=== PATIENT | female | born 1965 | race Caucasian/White ===

== ENCOUNTER → 2017-03-30 | Outpatient (CLI) | payer OTHER | LOC: MC.RAD 13:57 | DX: N63 Unspecified lump in breast (principal); N64.9 Disorder of breast, unspecified; Z80.3 Family history of malignant neoplasm of breast ==

== ENCOUNTER 2017-05-19 15:23 | Emergency (ER) | payer OTHER ==
[~2017-05-19] VITALS: Ht 154.9 cm; Wt 70.5 kg
[2017-05-19 15:24] VITALS: TEMP 98.4
[2017-05-19] MEDS ORDERED: MICROZIDE12.5 MG PO (16:21)
[2017-05-19] MEDS ORDERED: ZOCOR 10MG10 MG PO (16:22)
[2017-05-19 16:34] LABS: COLLECTION METHOD CLEAN CATCH
[2017-05-19 16:36] LABS: BASO % 0.6 % (0.0-2.0); EOS # 0.1 (0.0-0.7); EOS % 2.1 % (0-4.0); GRAN # 4.1 (1.4-6.5); GRAN % 60.7 % (42.2-75.2); HEMATOCRIT 42.8 % (37.0-47.0); HEMOGLOBIN 15.1 g/dl (12.5-16.0); LYMPH # 1.8 (1.2-3.4); LYMPH % 26.7 % (20.0-51.0); MEAN CELL VOLUME 89 fl (80.0-100.0); MEAN CORPUSCULAR HEMOGLOBIN 31 pg (27.0-31.0); MEAN CORPUSCULAR HGB CONC 35 g/dl (33.0-37.0); MEAN PLATELET VOLUME 9.6 fl (7.4-10.4); MONO # 0.6 (0.1-0.6); MONO % 9.6 % (1.7-9.3); PLATELET COUNT 254 K/mm3 (130-400); RED BLOOD COUNT 4.81 M/mm3 (4.10-5.30); WHITE BLOOD COUNT 6.7 K/mm3 (4.8-10.8)
[2017-05-19 16:40] LABS: PH 7 (5-8); URINE APPEARANCE Clear; URINE BACTERIA Rare /hpf; URINE BILIRUBIN Negative (NEGATIVE); URINE BLOOD Negative (NEGATIVE); URINE COLOR Straw; URINE GLUCOSE Negative (NEGATIVE); URINE KETONE Negative (NEGATIVE); URINE LEUKOCYTE ESTERASE Negative (NEGATIVE); URINE PROTEIN(semi-quant) Negative (NEGATIVE); URINE RBC 0-2 /hpf; URINE UROBILINOGEN Negative (NEGATIVE)
[2017-05-19 16:51] LABS: ADJUSTED CALCIUM 8.9 mg/dL (8.4-10.2); ALANINE AMINOTRANSFERASE 38 U/L (9-52); ALBUMIN 5.3 gm/dL (3.5-5.0); ALKALINE PHOSPHATASE 66 U/L (50-136); ANION GAP 12 mmol/L (7-16); BILIRUBIN,TOTAL 0.8 mg/dL (0.0-1.0); BLOOD UREA NITROGEN 12 mg/dL (7-17); C-REACTIVE PROTEIN < 0.5 mg/dL (0.0-0.9); CALCIUM 9.9 mg/dL (8.4-10.2); CARBON DIOXIDE 27 mmol/L (22-30); CHLORIDE 101 mmol/L (98-107); CREATININE, serum 0.82 mg/dL (0.52-1.25); GLUCOSE 81 mg/dL (74-106); LIPASE 86 U/L (23-300); POTASSIUM 3.6 mmol/L (3.4-5.0); SODIUM 141 mmol/L (137-145); TOTAL PROTEIN 7.7 gm/dL (6.4-8.2)
[2017-05-19] MEDS ORDERED: CARAFATE 1GM1 G PO (19:01)
[2017-05-19 19:22] VITALS: BP 125/98; PULSE 87
== END 2017-05-19 19:23 | disposition home or self-care (01) ==
LOC: COL.ER 15:23
PROVIDERS: Nurse Practitioner
DX: R10.11 Right upper quadrant pain (principal); I10 Essential (primary) hypertension; E78.00 Pure hypercholesterolemia, unspecified; Z90.710 Acquired absence of both cervix and uterus; Z98.890 Other specified postprocedural states
CPT/HCPCS: J2270; J2405; J7030; J7050; Q9967

== ENCOUNTER 2017-07-14 17:26 | Emergency (ER) | payer OTHER ==
[~2017-07-14] VITALS: Ht 152.4 cm; Wt 68.2 kg
[~2017-07-14 17:26] MED LIST: CARAFATE 1GM1 G PO; MICROZIDE12.5 MG PO; ZOCOR 10MG10 MG PO
[2017-07-14 17:28] VITALS: BP 134/87; TEMP 97.8
[2017-07-14 18:12] LABS: COLLECTION METHOD CLEAN CATCH
[2017-07-14 18:16] LABS: BASO % 0.7 % (0.0-2.0); EOS # 0.1 (0.0-0.7); EOS % 2.4 % (0-4.0); GRAN # 3.3 (1.4-6.5); HEMATOCRIT 38.4 % (37.0-47.0); HEMOGLOBIN 13.4 g/dl (12.5-16.0); LYMPH # 1.9 (1.2-3.4); MEAN CELL VOLUME 90 fl (80.0-100.0); MEAN CORPUSCULAR HEMOGLOBIN 31 pg (27.0-31.0); MEAN CORPUSCULAR HGB CONC 35 g/dl (33.0-37.0); MEAN PLATELET VOLUME 9.1 fl (7.4-10.4); MONO # 0.5 (0.1-0.6); MONO % 8.4 % (1.7-9.3); PLATELET COUNT 229 K/mm3 (130-400); RED BLOOD COUNT 4.28 M/mm3 (4.10-5.30)
[2017-07-14 18:20] LABS: PH 7 (5-8); URINE APPEARANCE Hazy; URINE BACTERIA Rare /hpf; URINE BILIRUBIN Negative (NEGATIVE); URINE BLOOD Negative (NEGATIVE); URINE COLOR Yellow; URINE GLUCOSE Negative (NEGATIVE); URINE KETONE Negative (NEGATIVE); URINE LEUKOCYTE ESTERASE Negative (NEGATIVE); URINE NITRATE Negative (NEGATIVE); URINE PROTEIN(semi-quant) Negative (NEGATIVE); URINE RBC 0-2 /hpf; URINE UROBILINOGEN Negative (NEGATIVE)
[2017-07-14 18:28] LABS: ALANINE AMINOTRANSFERASE 38 U/L (9-52); ALBUMIN 4.8 gm/dL (3.5-5.0); ALKALINE PHOSPHATASE 63 U/L (50-136); ANION GAP 11 mmol/L (7-16); AST,SGOT 26 U/L (15-37); BILIRUBIN,TOTAL 0.6 mg/dL (0.0-1.0); BLOOD UREA NITROGEN 12 mg/dL (7-17); CALCIUM 9.8 mg/dL (8.4-10.2); CARBON DIOXIDE 28 mmol/L (22-30); CHLORIDE 102 mmol/L (98-107); CREATININE, serum 0.75 mg/dL (0.52-1.25); GLUCOSE 97 mg/dL (74-106); LIPASE 117 U/L (23-300); POTASSIUM 3.7 mmol/L (3.4-5.0); SODIUM 142 mmol/L (137-145); TOTAL PROTEIN 7.5 gm/dL (6.4-8.2)
[2017-07-14 18:29] LABS: C-REACTIVE PROTEIN < 0.5 mg/dL (0.0-0.9)
[2017-07-14] MEDS ORDERED: ALLEGRA 180MG180 MG PO (18:36)
[2017-07-14] MEDS ORDERED: VITAMIN D31000 I1 PO (18:37)
[2017-07-14] MEDS ORDERED: VITAMIN B COMPL1 SGL PO (18:37)
[2017-07-14] MEDS ORDERED: EFFEXOR XR75 MG/CAP PO (19:00)
[2017-07-14 19:20] VITALS: PULSE 79
== END 2017-07-14 19:21 | disposition home or self-care (01) ==
LOC: COL.ER 17:26
PROVIDERS: Family Medicine
DX: R10.11 Right upper quadrant pain (principal); R10.12 Left upper quadrant pain; I10 Essential (primary) hypertension; E78.5 Hyperlipidemia, unspecified; Z98.890 Other specified postprocedural states
CPT/HCPCS: C9113; J1170; J2405; J7030

== ENCOUNTER → 2017-07-25 | Outpatient (CLI) | payer OTHER ==
[~2017-07-25] MED LIST changes: +ALLEGRA 180MG180 MG PO; +EFFEXOR XR75 MG/CAP PO; +VITAMIN B COMPL1 SGL PO; +VITAMIN D31000 I1 PO
== END ==
LOC: COL.RAD 13:56
DX: M54.2 Cervicalgia (principal)

== ENCOUNTER → 2017-09-21 | Outpatient (CLI) | payer OTHER | LOC: COL.RAD 07:57 | DX: R10.11 Right upper quadrant pain (principal) | CPT/HCPCS: A9537; J2805 ==

== ENCOUNTER 2017-10-11 21:33 | Emergency (ER) | payer OTHER ==
[~2017-10-11] VITALS: Ht 154.9 cm; Wt 66.8 kg
[2017-10-11 21:36] VITALS: TEMP 98.4
[2017-10-11] MEDS ORDERED: ZOFRAN 4MG T4 MG/TAB PO (22:13)
[2017-10-11] MEDS ORDERED: PERCOCET 325 MG1 TA2 PO (22:13)
[2017-10-11 22:14] LABS: BASO % 0.3 % (0.0-2.0); GRAN # 5.8 (1.4-6.5); LYMPH # 0.4 (1.2-3.4); LYMPH % 6.4 % (20.0-51.0); MEAN CELL VOLUME 86 fl (80.0-100.0); MEAN CORPUSCULAR HEMOGLOBIN 31 pg (27.0-31.0); MEAN CORPUSCULAR HGB CONC 36 g/dl (33.0-37.0); MEAN PLATELET VOLUME 8.8 fl (7.4-10.4); MONO # 0.2 (0.1-0.6); MONO % 3.1 % (1.7-9.3); PLATELET COUNT 215 K/mm3 (130-400); RED BLOOD COUNT 3.85 M/mm3 (4.10-5.30); REDCELL DISTRIBUTION WIDTH-CV 11.9 % (11.5-14.5)
[2017-10-11 22:27] LABS: ALBUMIN 4.2 gm/dL (3.5-5.0); BILIRUBIN,TOTAL 0.7 mg/dL (0.0-1.0); CALCIUM 9.1 mg/dL (8.4-10.2); CREATININE, serum 0.59 mg/dL (0.52-1.25); TOTAL PROTEIN 7.1 gm/dL (6.4-8.2)
[2017-10-11 23:16] VITALS: BP 122/79; PULSE 64
== END 2017-10-11 23:18 | disposition home or self-care (01) ==
LOC: COL.ER 21:33
PROVIDERS: Emergency Medicine
DX: G89.18 Other acute postprocedural pain (principal); R11.2 Nausea with vomiting, unspecified; R10.11 Right upper quadrant pain; I10 Essential (primary) hypertension; Z90.49 Acquired absence of other specified parts of digestive tract; Z90.710 Acquired absence of both cervix and uterus; Z90.11 Acquired absence of right breast and nipple
CPT/HCPCS: J1170; J2405; J7030

== ENCOUNTER → 2017-10-20 | Outpatient (CLI) | payer OTHER ==
[~2017-10-20] MED LIST changes: +NEURONTIN100 MG/CAP PO; +PERCOCET 325 MG1 TA2 PO; +PRINZIDE 12.5 M1 TAB PO; +ZOFRAN 4MG T4 MG/TAB PO
== END ==
LOC: COL.RAD 16:26
DX: R10.11 Right upper quadrant pain (principal)

== ENCOUNTER 2017-10-21 13:01 | Observation (INO) | payer OTHER ==
[~2017-10-21] VITALS: Ht 154.9 cm; Wt 65.9 kg
[~2017-10-21 13:01] MED LIST changes: -NEURONTIN100 MG/CAP PO; -PRINZIDE 12.5 M1 TAB PO
[2017-10-21] MEDS ORDERED: PRINZIDE 12.5 M1 TAB PO (13:17)
[2017-10-21] MEDS ORDERED: NEURONTIN100 MG/CAP PO (13:18)
[2017-10-21 13:48] VITALS: BP 113/82; PULSE 98; TEMP 98.3
[2017-10-21 14:39] LABS: HEMATOCRIT 41.8 % (37.0-47.0); HEMOGLOBIN 14.9 g/dl (12.5-16.0); MEAN CELL VOLUME 86 fl (80.0-100.0); MEAN CORPUSCULAR HEMOGLOBIN 31 pg (27.0-31.0); MEAN CORPUSCULAR HGB CONC 36 g/dl (33.0-37.0); MEAN PLATELET VOLUME 8.8 fl (7.4-10.4); PLATELET COUNT 313 K/mm3 (130-400); RED BLOOD COUNT 4.87 M/mm3 (4.10-5.30)
[2017-10-21 15:12] LABS: ALBUMIN 4.4 gm/dL (3.5-5.0); BILIRUBIN,TOTAL 0.9 mg/dL (0.0-1.0); CALCIUM 9.6 mg/dL (8.4-10.2); CREATININE, serum 0.7 mg/dL (0.52-1.25); TOTAL PROTEIN 8.2 gm/dL (6.4-8.2)
[2017-10-21 15:38] VITALS: BP 124/79; PULSE 86; TEMP 98.2
[2017-10-21 20:11] VITALS: BP 133/87; PULSE 89
[2017-10-21 23:55] VITALS: BP 122/78; PULSE 76; TEMP 97.8
[2017-10-22 03:40] VITALS: BP 111/67; PULSE 74; TEMP 97.5
[2017-10-22 07:31] VITALS: BP 111/66; PULSE 74; TEMP 97.7
[2017-10-22 11:48] VITALS: BP 127/84; PULSE 87; TEMP 98.2
[2017-10-22] MEDS ORDERED: QUESTRAN4 GM/9 GM PO (13:22)
[2017-10-22 15:28] VITALS: BP 125/87; PULSE 85; TEMP 98.4
[2017-10-22 19:16] VITALS: BP 128/86; PULSE 94; TEMP 98.5
[2017-10-22 23:15] VITALS: BP 134/77; PULSE 87; TEMP 98
[2017-10-23 04:19] VITALS: BP 101/61; PULSE 86
[2017-10-23 07:13] VITALS: BP 112/67; PULSE 80; TEMP 97.6
== END 2017-10-23 11:04 | disposition home or self-care (01) ==
LOC: EUO 13:01 → MEDICAL 13:47
PROVIDERS: Surgery
DX: E86.0 Dehydration (principal); R11.2 Nausea with vomiting, unspecified; I10 Essential (primary) hypertension; E78.5 Hyperlipidemia, unspecified; Z90.49 Acquired absence of other specified parts of digestive tract; Z90.710 Acquired absence of both cervix and uterus; Z88.8 Allergy status to other drugs, medicaments and biological substances; Z87.442 Personal history of urinary calculi
CPT/HCPCS: A9284; G0378; J1170; J2405; J7030; J7120

== ENCOUNTER 2018-03-16 08:53 | Outpatient (RCR) | payer OTHER ==
[~2018-03-16 08:53] MED LIST changes: +NEURONTIN100 MG/CAP PO; +PRINZIDE 12.5 M1 TAB PO; +QUESTRAN4 GM/9 GM PO
== END 2018-06-07 11:50 | disposition home or self-care (01) ==
LOC: WSC 08:53
DX: Z01.818 Encounter for other preprocedural examination (principal); M75.101 Unspecified rotator cuff tear or rupture of right shoulder, not specified as traumatic; M75.31 Calcific tendinitis of right shoulder

== ENCOUNTER 2018-06-22 08:45 | Outpatient (RCR) | payer OTHER | END 2018-06-27 | disposition home or self-care (01) | LOC: WSC | DX: Z47.89 Encounter for other orthopedic aftercare (principal) | CPT/HCPCS: G0283-GP ==

== ENCOUNTER 2018-08-25 10:15 | Outpatient (RCR) | payer OTHER | END 2018-08-25 12:23 | disposition home or self-care (01) | LOC: WSC 10:15 | DX: Z47.89 Encounter for other orthopedic aftercare (principal) ==

== ENCOUNTER 2020-02-26 17:31 | Emergency (ER) | payer BC ==
[~2020-02-26] VITALS: Ht 152.4 cm; Wt 68.2 kg
[2020-02-26 18:00] VITALS: TEMP 98.4
[2020-02-26 21:31] LABS: BASO % 0.6 % (0.0-2.0); EOS # 0.2 (0.0-0.7); EOS % 2.9 % (0-4.0); GRAN # 2.9 (1.4-6.5); HEMOGLOBIN 12.5 g/dl (12.5-16.0); LYMPH # 1.7 (1.2-3.4); LYMPH % 33.1 % (20.0-51.0); MEAN CELL VOLUME 90 fl (80.0-100.0); MEAN CORPUSCULAR HEMOGLOBIN 32 pg (27.0-31.0); MEAN CORPUSCULAR HGB CONC 35 g/dl (33.0-37.0); MONO # 0.4 (0.1-0.6); MONO % 8.2 % (1.7-9.3); PLATELET COUNT 220 K/mm3 (130-400); RED BLOOD COUNT 3.92 M/mm3 (4.10-5.30); REDCELL DISTRIBUTION WIDTH-CV 11.9 % (11.5-14.5)
[2020-02-26 21:35] LABS: HEMATOCRIT 35.3 % (37.0-47.0)
[2020-02-26 21:43] LABS: ALBUMIN 4.2 gm/dL (3.5-5.0); BILIRUBIN,TOTAL 0.5 mg/dL (0.0-1.0); CALCIUM 9.3 mg/dL (8.4-10.2); CREATININE, serum 0.72 (0.52-1.25); POTASSIUM 3.7 mmol/L (3.4-5.0); TOTAL PROTEIN 6.8 gm/dL (6.4-8.2)
[2020-02-26] MEDS ORDERED: MEDROL 4MG DOSPA4 MG PO (21:55)
[2020-02-26] MEDS ORDERED: NORCO 325 MG-51 TAB PO (22:19)
[2020-02-26] MEDS ORDERED: NEURONTIN300 MG/CAP PO (22:21)
[2020-02-26 22:57] VITALS: BP 141/98; PULSE 89
[2020-02-26 23:10] LABS: ERYTHROCYTE SEDIMENTATION RATE 13 mm/hr (0-30)
== END 2020-02-26 22:59 | disposition home or self-care (01) ==
LOC: COL.ER 17:31
PROVIDERS: Family Medicine
DX: M54.16 Radiculopathy, lumbar region (principal)
CPT/HCPCS: J1100; J1170; J2405

== ENCOUNTER → 2020-03-12 | Outpatient (CLI) | payer BC ==
[~2020-03-12] MED LIST changes: +MEDROL 4MG DOSPA4 MG PO; +NEURONTIN300 MG/CAP PO; +NORCO 325 MG-51 TAB PO
== END ==
LOC: MHCPAIN 08:11
DX: M47.817 Spondylosis without myelopathy or radiculopathy, lumbosacral region (principal); M54.5 Low back pain; M53.3 Sacrococcygeal disorders, not elsewhere classified; G89.29 Other chronic pain
CPT/HCPCS: G0463

== ENCOUNTER → 2020-03-13 | Outpatient (CLI) | payer BC | LOC: MHCPAIN 08:58 | DX: M47.817 Spondylosis without myelopathy or radiculopathy, lumbosacral region (principal); M54.5 Low back pain ==

== ENCOUNTER → 2020-03-24 | Outpatient (CLI) | payer BC | LOC: MHCPAIN 10:31 | DX: M47.817 Spondylosis without myelopathy or radiculopathy, lumbosacral region (principal); M54.5 Low back pain; M53.3 Sacrococcygeal disorders, not elsewhere classified; G89.29 Other chronic pain | CPT/HCPCS: G0463 ==

== ENCOUNTER → 2020-04-03 | Outpatient (CLI) | payer BC | LOC: MHCPAIN 07:41 | DX: M47.817 Spondylosis without myelopathy or radiculopathy, lumbosacral region (principal); M54.5 Low back pain | CPT/HCPCS: J2405; J7030 ==

== ENCOUNTER → 2020-04-14 | Outpatient (CLI) | payer BC | LOC: MHCPAIN 12:37 | DX: M47.817 Spondylosis without myelopathy or radiculopathy, lumbosacral region (principal); M54.5 Low back pain ==

== ENCOUNTER → 2020-04-17 | Outpatient (CLI) | payer BC | LOC: MHCPAIN 12:50 | DX: M47.817 Spondylosis without myelopathy or radiculopathy, lumbosacral region (principal); M54.5 Low back pain; M53.3 Sacrococcygeal disorders, not elsewhere classified; G89.29 Other chronic pain | CPT/HCPCS: G0463; J1100; J2250; J2405; J3010 ==

== ENCOUNTER 2020-06-09 16:45 | Outpatient (RCR) | payer BC | END 2020-06-12 | disposition home or self-care (01) | LOC: WSC | DX: M47.26 Other spondylosis with radiculopathy, lumbar region (principal); M48.061 Spinal stenosis, lumbar region without neurogenic claudication ==

== ENCOUNTER → 2020-06-11 | Outpatient (CLI) | payer BC | LOC: MHCPAIN 10:13 | DX: M25.551 Pain in right hip (principal); M54.5 Low back pain; M53.3 Sacrococcygeal disorders, not elsewhere classified; M47.817 Spondylosis without myelopathy or radiculopathy, lumbosacral region; M79.10 Myalgia, unspecified site | CPT/HCPCS: G0463 ==

== ENCOUNTER → 2020-06-18 | Outpatient (CLI) | payer BC | LOC: MHCPAIN 10:23 | DX: M79.18 Myalgia, other site (principal); M25.551 Pain in right hip | CPT/HCPCS: J1040 ==

== ENCOUNTER 2020-06-30 14:30 | Outpatient (RCR) | payer BC | END 2020-07-07 | disposition home or self-care (01) | LOC: WSC | DX: M48.061 Spinal stenosis, lumbar region without neurogenic claudication (principal); M47.26 Other spondylosis with radiculopathy, lumbar region ==

== ENCOUNTER → 2020-06-30 | Outpatient (CLI) | payer BC | LOC: MHCPAIN 10:21 | DX: M47.817 Spondylosis without myelopathy or radiculopathy, lumbosacral region (principal); M53.3 Sacrococcygeal disorders, not elsewhere classified; G89.29 Other chronic pain; M25.511 Pain in right shoulder | CPT/HCPCS: G0463 ==

== ENCOUNTER → 2020-08-04 | Outpatient (CLI) | payer BC | LOC: COL.RAD 10:24 | DX: M16.11 Unilateral primary osteoarthritis, right hip (principal) ==

== ENCOUNTER → 2020-08-04 | Outpatient (CLI) | payer BC | LOC: MHCPAIN 09:46 | DX: M25.521 Pain in right elbow (principal); M47.816 Spondylosis without myelopathy or radiculopathy, lumbar region; M53.3 Sacrococcygeal disorders, not elsewhere classified; G89.29 Other chronic pain | CPT/HCPCS: G0463 ==

== ENCOUNTER 2020-08-21 06:21 | Emergency (ER) | payer BC ==
[~2020-08-21] VITALS: Ht 154.9 cm; Wt 70.5 kg
[2020-08-21] MEDS ORDERED: TYLENOL 325MG325 MG PO (08:09)
[2020-08-21] MEDS ORDERED: MOTRIN 400400 MG/TAB PO (08:09)
[2020-08-21] MEDS ORDERED: CRUTCHES MC (08:10)
[2020-08-21 08:51] VITALS: BP 151/108; PULSE 76; TEMP 98.1
== END 2020-08-21 08:45 | disposition home or self-care (01) ==
LOC: COL.ER 06:21
DX: S93.601A Unspecified sprain of right foot, initial encounter (principal); Z88.8 Allergy status to other drugs, medicaments and biological substances; W10.9XXA Fall (on) (from) unspecified stairs and steps, initial encounter; Y92.009 Unspecified place in unspecified non-institutional (private) residence as the place of occurrence of the external cause
CPT/HCPCS: J1885

== ENCOUNTER → 2020-09-15 | Outpatient (CLI) | payer BC, OTHER ==
[~2020-09-15] MED LIST changes: +CRUTCHES MC; +MOTRIN 400400 MG/TAB PO; +TYLENOL 325MG325 MG PO
== END ==
LOC: MC.RAD 10:13
DX: Z12.31 Encounter for screening mammogram for malignant neoplasm of breast (principal)

== ENCOUNTER → 2020-11-03 | Outpatient (CLI) | payer BC | LOC: MHCPAIN 08-18 15:55 | DX: M47.816 Spondylosis without myelopathy or radiculopathy, lumbar region (principal); M25.551 Pain in right hip; M53.3 Sacrococcygeal disorders, not elsewhere classified; M70.61 Trochanteric bursitis, right hip | CPT/HCPCS: G0463 ==

== ENCOUNTER → 2020-11-05 | Outpatient (CLI) | payer BC | LOC: MHCPAIN 13:54 | DX: M70.61 Trochanteric bursitis, right hip (principal); M25.551 Pain in right hip | CPT/HCPCS: J1040 ==

== ENCOUNTER 2020-12-30 10:00 | Outpatient (RCR) | payer BC | END 2021-02-11 09:40 | disposition home or self-care (01) | LOC: PT.GENESIS 10:00 | DX: M25.571 Pain in right ankle and joints of right foot (principal) ==

== ENCOUNTER → 2021-04-07 | Outpatient (CLI) | payer BC, OTHER | LOC: MHCPAIN 12:25 | DX: M47.817 Spondylosis without myelopathy or radiculopathy, lumbosacral region (principal); M54.50 Low back pain, unspecified; M53.3 Sacrococcygeal disorders, not elsewhere classified | CPT/HCPCS: G0463 ==

== ENCOUNTER → 2021-04-10 | Outpatient (CLI) | payer BC, OTHER | LOC: COL.RAD 07:00 | DX: K76.0 Fatty (change of) liver, not elsewhere classified (principal); R74.8 Abnormal levels of other serum enzymes; Z90.49 Acquired absence of other specified parts of digestive tract ==

== ENCOUNTER → 2021-04-30 | Outpatient (CLI) | payer BC, OTHER | LOC: MHCPAIN 09:29 | DX: M47.817 Spondylosis without myelopathy or radiculopathy, lumbosacral region (principal); M54.50 Low back pain, unspecified; M53.3 Sacrococcygeal disorders, not elsewhere classified | CPT/HCPCS: J1100; J2250; J3010 ==

== ENCOUNTER 2021-10-23 16:13 | Emergency (ER) | payer BC ==
[~2021-10-23] VITALS: Ht 154.9 cm; Wt 68.2 kg
[2021-10-23 16:49] VITALS: TEMP 98.5
[2021-10-23 18:24] LABS: BASO % 0.5 % (0.0-2.0); EOS # 0.1 K/mm3 (0.0-0.7); EOS % 1.5 % (0.0-4.0); GRAN # 4.7 K/mm3 (1.4-6.5); GRAN % 71.6 % (42.2-75.2); HEMATOCRIT 38.4 % (37.0-47.0); HEMOGLOBIN 13.8 g/dl (12.5-16.0); LYMPH # 1.2 K/mm3 (1.2-3.4); LYMPH % 18.5 % (20.0-51.0); MEAN CELL VOLUME 88 fl (80.0-100.0); MEAN CORPUSCULAR HEMOGLOBIN 32 pg (27-31); MEAN CORPUSCULAR HGB CONC 36 g/dl (33.0-37.0); MEAN PLATELET VOLUME 8.9 fl (7.4-10.4); MONO # 0.5 K/mm3 (0.1-0.6); MONO % 7.6 % (1.7-9.3); PLATELET COUNT 230 K/mm3 (130-400); RED BLOOD COUNT 4.37 M/mm3 (4.10-5.30); REDCELL DISTRIBUTION WIDTH-CV 11.7 % (11.5-14.5)
[2021-10-23 18:39] LABS: ALBUMIN 4.3 gm/dL (3.5-5.0); BILIRUBIN,TOTAL 0.8 mg/dL (0.2-1.2); CALCIUM 9.1 mg/dL (8.4-10.2); CREATININE, serum 0.78 mg/dL (0.57-1.11); POTASSIUM 3.8 mmol/L (3.5-4.5); TOTAL PROTEIN 6.9 gm/dL (6.2-8.1)
[2021-10-23 19:15] VITALS: BP 149/97; PULSE 81
== END 2021-10-23 19:32 | disposition home or self-care (01) ==
LOC: COL.ER 16:13
PROVIDERS: Physician Assistant
DX: R51.9 Headache, unspecified (principal); Z86.69 Personal history of other diseases of the nervous system and sense organs
CPT/HCPCS: J1790; J7030

== ENCOUNTER → 2021-11-25 | Outpatient (CLI) | payer BC | LOC: MC.RAD 14:22 | DX: Z12.31 Encounter for screening mammogram for malignant neoplasm of breast (principal) ==

== ENCOUNTER → 2021-12-07 | Outpatient (CLI) | payer BC | LOC: MHCPAIN 10:38 | DX: M47.816 Spondylosis without myelopathy or radiculopathy, lumbar region (principal); M54.50 Low back pain, unspecified; M53.3 Sacrococcygeal disorders, not elsewhere classified; M79.18 Myalgia, other site | CPT/HCPCS: G0463 ==

== ENCOUNTER 2023-05-02 10:00 | Outpatient (CLI) | payer BC ==
[~2023-05-02] VITALS: Ht 154.9 cm; Wt 71.3 kg
[2023-05-02 11:32] VITALS: BP 141/96; PULSE 79; TEMP 98.8
[2023-05-02] MEDS ORDERED: AMITRIPTYLINE H50 M1 PO (11:39)
[2023-05-02] MEDS ORDERED: MIRAPEX 0.0.125 MG/T PO (11:39)
[2023-05-02] MEDS ORDERED: LIORESAL 1010 MG/TAB PO (11:40)
[2023-05-02] MEDS ORDERED: CRESTOR20 MG PO (11:40)
[2023-05-02] MEDS ORDERED: VOLTAREN 75 DR75 MG PO (11:41)
[2023-05-02] MEDS ORDERED: CEPHALEXIN500 M1 PO (11:42)
[2023-05-02] MEDS ORDERED: CYMBALTA 60MG60 MG PO (11:42)
[2023-05-02] MEDS ORDERED: CVS SPECTRAVIT1 EA15 PO (13:03)
[2023-05-02 13:05] VITALS: BP 150/91; PULSE 78
[2023-05-02 13:26] VITALS: BP 152/103; PULSE 76
--- NOTE | 2023-05-02 14:19 | NUR ---
Pt ambulated to [facility] with a steady gait. Pt is scheduled for a Tilt table test. Meds and HX reviewed with the pt. IV started. Consent for the procedure signed. Pt was taken to [facility] for the procedure. Came back to [facility] post procedure to recover. Pt recovered with us for about an hr. Pt stated feeling fine post tilt table, did report some dizziness but no significant vital changes. Pt was given discharge education and information. No questions at this time. Pt exited the unit by wheelchair to sons car.
== END 2023-05-02 14:12 | disposition home or self-care (01) ==
LOC: COL.CAR 10:00
DX: R00.0 Tachycardia, unspecified (principal)

== ENCOUNTER → 2023-08-23 | Outpatient (CLI) | payer BC ==
[~2023-08-23] MED LIST changes: +AMITRIPTYLINE H50 M1 PO; +CEPHALEXIN500 M1 PO; +CRESTOR20 MG PO; +CVS SPECTRAVIT1 EA15 PO; +CYMBALTA 60MG60 MG PO; +LIORESAL 1010 MG/TAB PO; +MIRAPEX 0.0.125 MG/T PO; +VOLTAREN 75 DR75 MG PO
== END ==
LOC: MHCPAIN 09:45
DX: M47.896 Other spondylosis, lumbar region (principal); M48.061 Spinal stenosis, lumbar region without neurogenic claudication; G89.29 Other chronic pain
CPT/HCPCS: G0463

== ENCOUNTER → 2023-09-21 | Outpatient (CLI) | payer BC | LOC: MHCPAIN 10:01 | DX: M47.817 Spondylosis without myelopathy or radiculopathy, lumbosacral region (principal); M53.3 Sacrococcygeal disorders, not elsewhere classified; M54.17 Radiculopathy, lumbosacral region | CPT/HCPCS: G0463 ==

== ENCOUNTER → 2023-10-20 | Outpatient (CLI) | payer BC ==
[~2023-10-20] MED LIST changes: +Iohexol 300 - 10 ML VIAL ONE
== END ==
LOC: MHCPAIN 12:45
DX: M46.1 Sacroiliitis, not elsewhere classified (principal); M54.50 Low back pain, unspecified; M53.3 Sacrococcygeal disorders, not elsewhere classified
CPT/HCPCS: G0260; J0665; J1010; Q9967

== ENCOUNTER → 2023-10-27 | Outpatient (CLI) | payer BC ==
[~2023-10-27] MED LIST changes: -Iohexol 300 - 10 ML VIAL ONE
== END ==
LOC: COL.RAD 07:30
DX: M47.22 Other spondylosis with radiculopathy, cervical region (principal)